=== PATIENT | male | born 1980 | race Two or more races ===

== ENCOUNTER 2018-01-06 08:43 | Emergency (ER) | payer OTHER ==
--- NOTE | 2018-01-06 09:58 | EDPHY ---
H & P Time Seen by Provider: 01/06/18 09:57 HPI/ROS: Chief complaint. Headache, arm and shoulder pain HPI. 37-year-old male presents emergency department with left-sided head ache and left-sided chest pain as well as neck pain. Began yesterday. Atraumatic. No similar symptoms previously. Not sick. No fever or cough. At time short of breath. At times left upper quadrant abdominal pain. No nausea vomiting or diarrhea. No urinary symptoms. Chest discomfort is not worse with exertion or deep breathing. ROS Constitutional. no fever/chills, no weakness Eyes. no problems with vision ENT. no sore throat, no nasal drainage Cardiovascular. Left chest pain Respiratory. Slight shortness of breath Abdominal. Occasional left upper quadrant abdominal pain . no problems urinating MS. no calf pain/swelling, no neck/back pain, no joint pain Skin. no rash Lymph. no swollen glands Neuro. Left-sided headache Past Medical/Surgical History: Healthy Social History: , nonsmoker, no alcohol Smoking Status: Never smoked Physical Exam: General Appearance: Alert pleasant well-developed male mild distress vital signs are stable Eyes: Pupils equal and round no pallor or injection. ENT, Mouth: Mucous membranes are moist. Respiratory: There are no retractions, lungs are clear to auscultation. Cardiovascular: Regular rate and rhythm. Gastrointestinal: Abdomen is soft and nontender, no masses, bowel sounds normal. Neurological: Awake and alert, sensory and motor exams grossly normal. Speech is normal. Cranial nerves are normal. There is no pronator drift. Finger-to- nose [id number] are intact bilaterally Skin: Warm and dry, no rashes. Musculoskeletal: Neck is supple nontender. Extremities symmetrical, full range of motion. Psychiatric: Patient is oriented X 3, there is no agitation. Constitutional: Initial Vital Signs Temperature (C) 36.5 C 01/06/18 08:45 Heart Rate 58 L 01/06/18 08:45 Respiratory Rate 16 01/06/18 08:45 Blood Pressure 125/75 H 01/06/18 08:45 O2 Sat (%) 98 01/06/18 08:45 O2 Delivery Mode Room Air Allergies/Adverse Reactions: No Known Allergies Allergy (Unverified 01/06/18 08:47) Home Medications: Medication Instructions Recorded NK [No Known Home Meds] 01/06/18 Medical Decision Making - Diagnostics EKG Interpretation: EKG interpreted by me shows normal sinus rhythm normal interval and axis. QRS is normal. There is no significant ST elevation or depression. Probable early repolarization pattern. Rate is 51 Imaging Results: Imaging Impressions Chest X-Ray 01/06/18 10:10 Impression: 1. No acute pulmonary disease. 2. Consider chest two views when the patient's medical condition permits. Head CT 01/06/18 10:10 Impression: 1. Normal CT brain without contrast. 2. Mild sinusitis, as described above. Findings and recommendations discussed with emergency department physician, Ronan Mendoza MD at 1107 hours on January 06, 2018. Final report concurs with initial preliminary interpretation. Chest x-ray reviewed by me is normal Head CT noncontrast reviewed by me and discussed with radiologist is also normal Procedures: IV normal saline. Reglan, Benadryl, Toradol IV ED Course/Re-evaluation: Re-evaluation 11:30 a.m. Patient is stable. His headache is resolved. His chest discomfort has resolved. The patient, his , and I discussed imaging and lab results. We discussed treatment plan including criteria for return importance of follow-up further evaluation. He expresses understanding and agreement brim buster is Oni Differential Diagnosis: I considered intracranial bleeding, migraine, acute coronary syndrome, pneumonia. - Data Points Laboratory Results: Laboratory Results 01/06/18 09:10 01/06/18 09:10 01/06/18 01/06/18 01/06/18 09:15 09:10 09:10 WBC RBC Hgb Hct MCV MCH MCHC RDW Plt Count MPV Neut % (Auto) Lymph % (Auto) [place] % (Auto) Eos % (Auto) Baso % (Auto) Nucleat RBC Rel Count Absolute Neuts (auto) Absolute Lymphs (auto) Absolute Monos (auto) Absolute Eos (auto) Absolute Basos (auto) Absolute Nucleated RBC Immature Gran % Immature Gran # PT 13.2 SEC SEC (12.0-15.0) INR 0.98 (0.83-1.16) Sodium 141 mEq/L mEq/L (135-145) Potassium 4.4 mEq/L mEq/L (3.3-5.0) Chloride 106 mEq/L mEq/L (97-110) Carbon Dioxide 26 mEq/l mEq/l (22-31) Anion Gap 9 mEq/L mEq/L (8-16) BUN 13 mg/dL mg/dL (7-23) Creatinine 0.7 mg/dL mg/dL (0.7-1.3) Estimated GFR > 60 Glucose 95 mg/dL mg/dL (70-100) Calcium 9.2 mg/dL mg/dL (8.5-10.4) POC Troponin I 0.00 ng/mL ng/mL (0.00-0.08) 01/06/18 09:10 WBC 6.10 10^3/uL 10^3/uL (3.80-9.50) RBC 4.94 10^6/uL 10^6/uL (4.40-6.38) Hgb 15.6 g/dL g/dL (13.7-17.5) Hct 45.5 % % (40.0-51.0) MCV 92.1 fL fL (81.5-99.8) MCH 31.6 pg pg (27.9-34.1) MCHC 34.3 g/dL g/dL (32.4-36.7) RDW 12.1 % % (11.5-15.2) Plt Count 120 10^3/uL L 10^3/uL (150-400) MPV 12.1 fL H fL (8.7-11.7) Neut % (Auto) 53.1 % % (39.3-74.2) Lymph % (Auto) 36.9 % % (15.0-45.0) [place] % (Auto) 6.6 % % (4.5-13.0) Eos % (Auto) 2.1 % % (0.6-7.6) Baso % (Auto) 0.8 % % (0.3-1.7) Nucleat RBC Rel Count 0.0 % % (0.0-0.2) Absolute Neuts (auto) 3.24 10^3/uL 10^3/uL (1.70-6.50) Absolute Lymphs (auto) 2.25 10^3/uL 10^3/uL (1.00-3.00) Absolute Monos (auto) 0.40 10^3/uL 10^3/uL (0.30-0.80) Absolute Eos (auto) 0.13 10^3/uL 10^3/uL (0.03-0.40) Absolute Basos (auto) 0.05 10^3/uL 10^3/uL (0.02-0.10) Absolute Nucleated RBC 0.00 10^3/uL 10^3/uL (0-0.01) Immature Gran % 0.5 % % (0.0-1.1) Immature Gran # 0.03 10^3/uL 10^3/uL (0.00-0.10) PT INR Sodium Potassium Chloride Carbon Dioxide Anion Gap BUN Creatinine Estimated GFR Glucose Calcium POC Troponin I Medications Given: Discontinued Medications Diphenhydramine HCl (Benadryl Injection) 12.5 mg IVP EDNOW ONE Stop: 01/06/18 10:10 Last Admin: 01/06/18 10:18 Dose: 12.5 mg Diphenhydramine HCl (Benadryl Injection) 25 mg IVP EDNOW ONE Stop: 01/06/18 11:00 Last Admin: 01/06/18 11:04 Dose: Not Given Sodium Chloride (Ns) 1,000 mls @ 0 mls/hr IV ONCE ONE; Wide Open PRN Reason: Protocol Stop: 01/06/18 10:10 Last Admin: 01/06/18 10:18 Dose: 1,000 mls Ketorolac Tromethamine (Toradol) 30 mg IVP EDNOW ONE Stop: 01/06/18 10:11 Last Admin: 01/06/18 10:18 Dose: 30 mg Metoclopramide HCl (Reglan Injection) 10 mg IVP EDNOW ONE Stop: 01/06/18 10:10 Last Admin: 01/06/18 10:18 Dose: 10 mg Point of Care Test Results: Chemistry 01/06/18 09:15 POC Troponin I 0.00 ng/mL ng/mL (0.00-0.08) Departure - Departure Disposition: Home, Routine, Self-Care Clinical Impression: Chest pain Qualifiers: Chest pain type: unspecified Qualified Code(s): R07.9 - Chest pain, unspecified Headache Qualifiers: Headache type: unspecified Headache chronicity pattern: acute headache Intractability: not intractable Qualified Code(s): R51 - Headache Condition: Good Instructions: Acute Headache (ED) Additional Instructions: Easy activity today. Drink plenty of fluids and stay hydrated. Tylenol 1000 mg every 4-6 hours, ibuprofen 600 mg every 6 hr as needed for headache Return for worsening headache, chest discomfort, trouble breathing. Recheck in 1 day for continuing symptoms Referrals: NONE *PRIMARY CARE P,. [Primary Care Provider] - As per Instructions [facility] [Clinic] - 1 day, if not improved
[2018-01-06] MEDS ORDERED: METOCLOPRAMIDE 10 MG/2 ML VIAL IVP ONE (10:09)
[2018-01-06] MEDS ORDERED: NS 1,000 ML IV ONE (10:09)
[2018-01-06] MEDS ORDERED: KETOROLAC 30 MG/1 ML SDV IVP ONE (10:10)
[2018-01-06 10:16] LABS: PLATELET COUNT 120 10^3/uL (150-400)
[2018-01-06 10:24] LABS: INR 0.98 (0.83-1.16); PROTIME(PATIENT) 13.2 SEC (12.0-15.0)
[2018-01-06 11:48] VITALS: BP 127/64
--- NOTE | 2018-01-07 23:35 | CPEKG ---
Test Reason : OPEN Blood Pressure : / mmHG Vent. Rate : 051 BPM Atrial Rate : 051 BPM P-R Int : 159 ms QRS Dur : 083 ms QT Int : 403 ms P-R-T Axes : 051 064 050 degrees QTc Int : [address] elev, probable normal early repol pattern Confirmed by Ronan Mendoza ([id number]) on 01/07/2018 11:35:15 PM Referred By: Confirmed By:Ronan Mendoza
== END 2018-01-06 11:58 | disposition home or self-care (01) ==
DX: R07.9 Chest pain, unspecified (principal); R51 Headache; E86.9 Volume depletion, unspecified
CPT/HCPCS: 84484-PO; 96374; J1200; J1885; J2765